=== PATIENT | female | born 1955 | race Caucasian/White ===

== ENCOUNTER 2020-08-26 21:12 | Emergency (ER) | payer BC ==
[2020-08-26] MEDS ORDERED: Lactated Ringers 500 ML IV ONE (21:19)
[2020-08-26] MEDS ORDERED: Sodium Chloride 0.9% 10 ML Syringe FLUSH PRN (21:19)
--- NOTE | 2020-08-26 21:41 | EDM.PDOC ---
ED HPI GENERAL MEDICAL PROBLEM - General Chief Complaint: Respiratory Problem Stated Complaint: ct scan Time Seen by Provider: 08/26/20 21:16 Source of Information: Reports: Patient, Provider (Dr. Sanchez, RN Notes Reviewed History Limitations: Reports: No Limitations - History of Present Illness INITIAL COMMENTS - FREE TEXT/NARRATIVE: Patient is a 64-year-old female who presents to the ED via the direction of her primary care provider for a CT of her chest. Patient was diagnosed with COVID- 19 at beginning of July, and is still having some lingering chest discomfort. She states that it feels like her entire chest has a lot of pressure. She notes that she is felt this before when she has had pleurisy, and it feels very similar. She states that after the COVID-19, she is just feeling generalized fatigue, but not having any fevers or chills, no cough. She does states her rib cage hurts all the time. She is not taking any sort of medications for the discomfort. She was directed by her primary care provider to come here for an angio CT of her chest to rule out a PE as her d-dimer done today was 0.57 by our lab. - Related Data Allergies Allergy/AdvReac Type Severity Reaction Status Date / Time Iodinated Contrast Media Allergy Severe Anaphylactic Verified 08/26/20 21:25 Shock Home Meds: Home Meds Losartan [Cozaar] 50 mg PO DAILY 08/26/20 [History] hydroCHLOROthiazide [Hydrochlorothiazide] 12.5 mg PO DAILY 08/26/20 [History] Past Medical History HEENT History: Reports: Impaired Vision Cardiovascular History: Reports: Hypertension - Infectious Disease History Infectious Disease History: Reports: MRSA Other Infectious Disease History: MRSA history under left arm - Past Surgical History HEENT Surgical History: Reports: Oral Surgery Female Surgical History: Reports: Hysterectomy Musculoskeletal Surgical History: Reports: Other (See Below) Other Musculoskeletal Surgeries/Procedures:: bilat foot surgery. Social & Family History - Tobacco Use Smoking Status *Q: Never Smoker - Caffeine Use Caffeine Use: Reports: Coffee - Recreational Drug Use Recreational Drug Use: No ED ROS GENERAL - Review of Systems Review Of Systems: Comprehensive ROS is negative, except as noted in HPI. ED EXAM, GENERAL - Physical Exam Exam: See Below Exam Limited By: No Limitations General Appearance: Alert, WD/WN, No Apparent Distress Respiratory/Chest: No Respiratory Distress, Lungs Clear, Normal Breath Sounds, No Accessory Muscle Use, Other (generalized chest tenderness to bilateral chest) Cardiovascular: Normal Peripheral Pulses, Regular Rate, Rhythm, No Murmur Peripheral Pulses: 2+: Radial (L), Radial (R) Neurological: Alert, Oriented, Normal Cognition, No Motor/Sensory Deficits Psychiatric: Normal Affect, Normal Mood Skin Exam: Warm, Dry, Intact, Normal Color, No Rash Course - Vital Signs Last Recorded V/S: Last Vital Signs Temp 97.7 F 08/26/20 21:19 Pulse 96 08/26/20 21:19 Resp 18 08/26/20 21:19 BP 161/85 H 08/26/20 21:19 Pulse Ox 97 08/26/20 21:19 - Orders/Labs/Meds Orders: Active Orders 24 hr Category Date Time Status Peripheral IV Insertion Adult [OM.PC] Routine Oth 08/26/20 21:19 Ordered Labs: Laboratory Tests 08/26/20 08/26/20 Range/Units 21:25 21:25 Sodium 143 (136-145) mEq/L Potassium 3.8 (3.5-5.1) mEq/L Chloride 105 (98-107) mEq/L Carbon Dioxide 25 (21-32) mEq/L Anion Gap 16.8 H (5-15) BUN 16 (7-18) mg/dL Creatinine 1.5 H (0.55-1.02) mg/dL Est Cr Clr Drug Dosing 32.87 mL/min Estimated GFR (MDRD) 35 (>60) mL/min BUN/Creatinine Ratio 10.7 L (14-18) Glucose 113 (80-115) mg/dL Calcium 9.6 (8.5-10.1) mg/dL Total Bilirubin 0.5 (0.2-1.0) mg/dL AST 21 (15-37) U/L ALT 34 (14-59) U/L Alkaline Phosphatase 84 (46-116) U/L C-Reactive Protein 0.9 (<1.0) mg/dL Total Protein 7.7 (6.4-8.2) g/dl Albumin 4.0 (3.4-5.0) g/dl Globulin 3.7 gm/dL Albumin/Globulin Ratio 1.1 (1-2) Meds: Medications Discontinued Medications Generic Name Dose Route Start Last Admin Trade Name Freq PRN Reason Stop Dose Admin Lactated Ringer's 500 mls @ 999 mls/hr 08/26/20 21:19 08/26/20 21:35 Ringers, Lactated IV 08/26/20 21:49 999 mls/hr .BOLUS ONE Administration Sodium Chloride 10 ml 08/26/20 21:19 08/26/20 21:36 Saline Flush FLUSH 10 ml ASDIRECTED PRN Administration Keep Vein Open - Re-Assessments/Exams Free Text/Narrative Re-Assessment/Exam: 08/26/20 21:41 Patient presents to the ED per Dr. Noriega for a CTA. When she gets here, she tells that she has an iodinated contrast media allergy, so we cannot do a CTA at this time. She will get some IV fluids, and have a CMP and a CRP taken at this time. The patient did have a d-dimer done earlier today at 0.57. I do believe there is low likelihood of suspicion for a pulmonary embolus. I did call Dr. Noriega back and we decided to go ahead with a V/Q scan in the morning, as she has an anaphylactic type reaction to the iodinated contrast media and I just do not believe would be safe for her to continue with the CT Angio. Patient is not tachycardic, her heart rate is 72 bpm, and her O2 sats are 95 to 97% on room air. Again low likelihood of suspicion for PE at this time. I do believe however the patient is probably suffering from pleurisy or pleuritic chest discomfort. 08/26/20 22:14 CMP has come back as well as CRP. CRP is not elevated. CMP shows a low GFR 35, creatinine mildly elevated at 1.9. Anion gap is elevated at 16. I do believe she might have some slight dehydration causing some of these issues. Nonetheless she did get a 500 mils bolus of lactated Ringer's while in the ER. Patient be discharged home with general recommendations at this time. 08/27/20 14:26 The patient did have her ventilation/perfusion scan done and there was no abnormalities noted. I called the patient and made her aware of this along with her provider Dr. Noriega. Departure - Departure Time of Disposition: 22:15 Disposition: Home, Self-Care 01 Condition: Good Clinical Impression: Elevated d-dimer, Pleuritic chest pain - Discharge Information *PRESCRIPTION DRUG MONITORING PROGRAM REVIEWED*: No *COPY OF PRESCRIPTION DRUG MONITORING REPORT IN PATIENT JACKIE: No Instructions: Nonspecific Chest Pain, Adult, [id number] Referrals: Que Noriega MD [Primary Care Provider] - Forms: ED Department Discharge Additional Instructions: You were evaluated in the ER today for your elevated d-dimer. As you had an iodinated contrast media allergy, you unfortunately could not get a CT of your chest with contrast. We did however place an outpatient order for you for a ventilation/perfusion scan, that our radiology department will call to schedule you for in the morning. This will likely be early in the morning tomorrow after they have completed their stress tests. But again they will call you to have you come in for this test. If you do not hear from them by around 10:30 in the morning tomorrow, please call [phone] and ask for radiology, and they should be able to connect you with someone who knows about their scheduling. You will need to follow-up with Dr. Noriega for the results of this, I will also be back at work tomorrow, I will keep an eye out for the results, if there is anything worrisome I will try to call you sooner rather than later. It is likely that your chest discomfort is due to pleuritic inflammation or pleurisy, you may take 600 mg ibuprofen every 6 hours as needed for further pain relief. Do not exceed 3200 mg ibuprofen in a 24-hour time span. Please return to the ER at any time if your symptoms change or worsen. Sepsis Event Note (ED) - Evaluation Sepsis Screening Result: No Definite Risk - My Orders Last 24 Hours: My Active Orders 08/26/20 21:19 Peripheral IV Insertion Adult [OM.PC] Routine - Assessment/Plan Last 24 Hours: My Active Orders 08/26/20 21:19 Peripheral IV Insertion Adult [OM.PC] Routine
== END 2020-08-26 22:25 | disposition home or self-care (01) ==
LOC: JD.ED 21:12
DX: R07.81 Pleurodynia (principal); R79.1 Abnormal coagulation profile; I10 Essential (primary) hypertension; Z91.041 Radiographic dye allergy status; Z79.899 Other long term (current) drug therapy
CPT/HCPCS: 36415; 80053; 86140; 96360; 99284; J7120; 99283

== ENCOUNTER 2020-11-06 08:56 | Day surgery (SDC) | payer BC ==
--- NOTE | 2020-11-04 12:48 | PCM.SN.2 ---
<Rosa ElenaJulieth J - Last Filed: 11/06/20 09:11> - Free Text/Narrative Note: Right selective femoral nerve block at the adductor canal for post-procedure pain control under US guidance requested by Dr. Kemp. Time Out: Start: End: Chart reviewed. Consent signed. Questions answered. Appropriate monitors applied. Time out performed. Right mid-shaft femur identified with ultrasound, scanning medially of femur, the femoral artery in the adductor canal visualized, and the femoral nerve located laterally to the artery. The skin was prepped lateral to the ultrasound probe with chlorahexadine times two. The 21ga 4 insulated block needle was inserted under direct ultrasound guidance into the adductor canal. 25mL of 0.5% ropivacaine with 1:200,000 epinephrine was injected circumferentially around the nerve with intermittent negative aspiration noted. Patient tolerated the procedure well. Sterile technique noted along with sterile gloves, mask, and sterile probe cover. See picture on progress note and vital signs on nurses notes. Block completed in PACU. Jigar Ruiz CRNA <Seda Ruiz - Last Filed: 11/06/20 13:28> - Free Text/Narrative Note: Time Out: 1314 Start: 1315 Stop: 1319
[~2020-11-06 08:56] MED LIST: Acetaminophen 325 MG Tab PO SCH; EPINEPHrine 1 MG/ML SDV ONE; Lactated Ringers 1,000 ML IV SCH; Lidocaine 1%/Sod Bicarbonate in NS 8.4% 1 ML Syringe IDERM PRN; Pregabalin 25 MG Cap PO SCH; Ropivacaine 0.5% 5 MG/ML 30 ML SDV ONE; Sodium Chloride 0.9% 10 ML Syringe FLUSH PRN; oxyCODONE ER 10 MG TAB.ER PO SCH
[2020-11-06] MEDS ORDERED: Bupivacaine 0.25% 10 ML SDV ONE ×2 (09:18→09:35)
[2020-11-06] MEDS ORDERED: Triamcinolone Acetonide 40 MG/ML 1 ML SDV ONE (09:35)
[2020-11-06] MEDS ORDERED: Midazolam 1 MG/ML 2 ML SDV ONE (09:39)
[2020-11-06] MEDS ORDERED: Propofol 200 MG/20 ML SDV ONE (09:39)
[2020-11-06] MEDS ORDERED: fentaNYL 100 MCG/2 ML SDV ONE (09:39)
[2020-11-06] MEDS ORDERED: Ketamine 500 mg/10 ML MDV ONE (09:40)
[2020-11-06] MEDS ORDERED: Ketorolac 15 MG/ML SDV ONE (11:35)
[2020-11-06] MEDS ORDERED: Lidocaine 1% 4 ML ONE (11:35)
[2020-11-06] MEDS ORDERED: Dexamethasone 4 MG/ML 5 ML MDV ONE (11:35)
[2020-11-06] MEDS ORDERED: Ondansetron 4 MG/2 ML SDV ONE (11:35)
[2020-11-06] MEDS ORDERED: ceFAZolin 1 GM Vial ONE (11:36)
[2020-11-06] MEDS: Bupivacaine 0.25% 10 ML SDV ONE ×2 (12:11→12:22)
[2020-11-06] MEDS: Morphine 8 MG, EPINEPHrine 0.3 MG, Cefuroxime 750 MG, Ketorolac 30 MG, Sodium Chloride ... PRN ×10 (12:12→12:22)
[2020-11-06] MEDS: Vancomycin 1 GM SDV ONE ×2 (12:13→12:27)
--- NOTE | 2020-11-06 13:05 | PCM.POSTAN ---
POST ANESTHESIA ASSESSMENT - MENTAL STATUS Mental Status: Alert, Oriented - VITAL SIGNS Vital Signs: Last Vital Signs Temp 36.4 C 11/06/20 12:55 Pulse 63 11/06/20 12:55 Resp 17 11/06/20 13:00 BP 105/61 11/06/20 13:00 Pulse Ox 98 11/06/20 13:00 - RESPIRATORY Respiratory Status: Respiratory Rate WNL, Airway Patent, O2 Saturation Stable, Supplemental Oxygen - CARDIOVASCULAR CV Status: Pulse Rate WNL, Blood Pressure Stable - GASTROINTESTINAL GI Status: No Symptoms - PAIN Pain Score: 0 - POST OP HYDRATION Hydration Status: Adequate & Stable
--- NOTE | 2020-11-06 13:09 | PCM.PREANE ---
Preanesthetic Assessment - Procedure Proposed Procedure: right Total Knee Injection - Anesthesia/Transfusion/Family Hx Anesthesia History: Prior Anesthesia Without Reaction Family History of Anesthesia Reaction: No - Review of Systems General: No Symptoms Pulmonary: No Symptoms Cardiovascular: No Symptoms Gastrointestinal: Other (GERD) Neurological: Headache (Migraine headaches worse since covid infection in July. ) Other: Reports: None (Covid infection in july. Feeling much better now. ) - Physical Assessment NPO Status Date: 11/05/20 NPO Status Time: 23:30 Vital Signs: Last Vital Signs Temp 36.4 C 11/06/20 12:55 Pulse 63 11/06/20 12:55 Resp 17 11/06/20 13:00 BP 105/61 11/06/20 13:00 Pulse Ox 98 11/06/20 13:00 Height: 1.6 m Weight: 79.379 kg ASA Class: 2 Mental Status: Alert & Oriented x3 Airway Class: Mallampati = 2 Dentition: Reports: Normal Dentition Thyro-Mental Finger Breadths: 3 Mouth Opening Finger Breadths: 3 ROM/Head Extension: Full Lungs: Clear to Auscultation, Normal Respiratory Effort Cardiovascular: Regular Rate, Regular Rhythm - Lab Values: Laboratory Last Values MRSA (PCR) Negative 10/29/20 16:47 - Allergies Allergies/Adverse Reactions: Allergies Allergy/AdvReac Type Severity Reaction Status Date / Time Iodinated Contrast Media Allergy Severe Anaphylactic Verified 11/05/20 16:19 Shock - Anesthesia Plan Pre-Op Medication Ordered: Anxiolytic - Acknowledgements Anesthesia Type Planned: Spinal Pt an Appropriate Candidate for the Planned Anesthesia: Yes Alternatives and Risks of Anesthesia Discussed w Pt/Guardian: Yes Pt/Guardian Understands and Agrees with Anesthesia Plan: Yes PreAnesthesia Questionnaire HEENT History: Reports: Impaired Vision, Sinusitis, Other (See Below) Other HEENT History: oral surgery Cardiovascular History: Reports: Hypertension, Other (See Below) Other Cardiovascular History: edema Other Respiratory History: cough Genitourinary History: Reports: Other (See Below) Other Genitourinary History: stage III renal insufficiency 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) Other OB/BYN History: post menopausal Musculoskeletal History: Reports: Other (See Below) Other Musculoskeletal History: joint pain, wrist sprain, trigger finger, left hip pain, OA, bunions Neurological History: Reports: Headaches, Chronic Psychiatric History: Reports: Other (See Below) Other Psychiatric History: malaise, fatigue Endocrine/Metabolic History: Reports: Osteopenia Hematologic History: Reports: None Immunologic History: Reports: None Oncologic (Cancer) History: Reports: None Dermatologic History: Reports: Other (See Below) Other Dermatologic History: back contusion, skin disorder - Infectious Disease History Infectious Disease History: Reports: MRSA, Novel Coronavirus Other Infectious Disease History: MRSA history under left arm - Past Surgical History HEENT Surgical History: Reports: Oral Surgery Cardiovascular Surgical History: Reports: None Respiratory Surgical History: Reports: None GI Surgical History: Reports: Colonoscopy, EGD Female Surgical History: Reports: Hysterectomy Male Surgical History: Reports: None Endocrine Surgical History: Reports: None Neurological Surgical History: Reports: None Musculoskeletal Surgical History: Reports: Other (See Below) Other Musculoskeletal Surgeries/Procedures:: bilat foot surgery. Oncologic Surgical History: Reports: None Dermatological Surgical History: Reports: None - SUBSTANCE USE Tobacco Use Status *Q: Never Tobacco User Recreational Drug Use History: No - HOME MEDS Home Medications: Home Meds Losartan [Cozaar] 50 mg PO DAILY 08/26/20 [History] hydroCHLOROthiazide [Hydrochlorothiazide] 12.5 mg PO DAILY 08/26/20 [History] Cholecalciferol (Vitamin D3) [Vitamin D3] 4,000 unit PO DAILY 11/05/20 [History] Magnesium Gluconate 30 mg PO DAILY 11/05/20 [History] Multivitamin [Multi-Day Vitamins] 1 tab PO DAILY 11/05/20 [History] Nutridine 1 tab PO DAILY 11/05/20 [History] Omeprazole Magnesium [Prilosec Otc] 20 mg PO DAILY 11/05/20 [History] Aspirin [Aspirin EC] 325 mg PO BID #84 tab 11/06/20 [Rx] Cyclobenzaprine [Flexeril] 10 mg PO BID PRN #20 tab 11/06/20 [Rx] Ondansetron [Zofran] 4 mg PO Q6H PRN #20 tab 11/06/20 [Rx] oxyCODONE 5 - 10 mg PO Q4H PRN #40 tab 11/06/20 [Rx] - CURRENT (IN HOUSE) MEDS Current Meds: Current Medications Acetaminophen (Tylenol) 975 mg PO ONETIME LILIANA Stop: 11/06/20 14:00 Last Admin: 11/06/20 09:53 Dose: 975 mg Documented by: Morphine Sulfate 8 mg/Epinephrine HCl 0.3 mg/Cefuroxime Sodium 750 mg/Ketorolac Tromethamine 30 mg/Sodium Chloride 7.9 ml 0 mg .XX ASDIRECTED PRN PRN Reason: Pain Stop: 11/06/20 15:00 Last Admin: 11/06/20 12:22 Dose: 788.3 mg Documented by: Lactated Ringer's (Ringers, Lactated) 1,000 mls @ 125 mls/hr IV ASDIRECTED LILIANA Stop: 11/06/20 23:00 Last Admin: 11/06/20 09:10 Dose: 125 mls/hr Documented by: Lidocaine/Sodium Bicarbonate (Buffered Lidocaine 1% In Ns 8.4%) 0.25 ml IDERM ONETIME PRN PRN Reason: Prior to IV Start Stop: 11/06/20 18:00 Last Admin: 11/06/20 09:10 Dose: 0.25 ml Documented by: Oxycodone HCl (Oxycontin) 10 mg PO ONETIME LILIANA Stop: 11/06/20 14:00 Last Admin: 11/06/20 09:54 Dose: 10 mg Documented by: Pregabalin (Lyrica) 50 mg PO ONETIME LILIANA Stop: 11/06/20 14:00 Last Admin: 11/06/20 09:54 Dose: 50 mg Documented by: Sodium Chloride (Saline Flush) 10 ml FLUSH ASDIRECTED PRN PRN Reason: Keep Vein Open Stop: 11/06/20 18:00 Discontinued Medications Bupivacaine HCl (Sensorcaine-Mpf 0.25%) Confirm Administered Dose 30 ml .ROUTE .STK-MED ONE Stop: 11/06/20 09:19 Bupivacaine HCl (Sensorcaine-Mpf 0.25%) Confirm Administered Dose 30 ml .ROUTE .STK-MED ONE Stop: 11/06/20 09:20 Last Admin: 11/06/20 12:22 Dose: 30 ml Documented by: Bupivacaine HCl (Sensorcaine-Mpf 0.25%) Confirm Administered Dose 10 ml .ROUTE .STK-MED ONE Stop: 11/06/20 09:36 Cefazolin Sodium (Ancef) Confirm Administered Dose 2 gm .ROUTE .STK-MED ONE Stop: 11/06/20 11:37 Dexamethasone (Dexamethasone) Confirm Administered Dose 20 mg .ROUTE .STK-MED ONE Stop: 11/06/20 11:36 Epinephrine HCl (Adrenalin) Confirm Administered Dose 1 mg .ROUTE .STK-MED ONE Stop: 11/06/20 06:24 Fentanyl (Sublimaze) Confirm Administered Dose 100 mcg .ROUTE .STK-MED ONE Stop: 11/06/20 09:40 Lidocaine HCl (Xylocaine-Mpf 1%) Confirm Administered Dose 4 mls @ as directed .ROUTE .STK-MED ONE Stop: 11/06/20 11:36 Ketamine HCl (Ketalar) Confirm Administered Dose 500 mg .ROUTE .STK-MED ONE Stop: 11/06/20 09:41 Ketorolac Tromethamine (Toradol) Confirm Administered Dose 15 mg .ROUTE .STK-MED ONE Stop: 11/06/20 11:36 Midazolam HCl (Versed 1 Mg/Ml) Confirm Administered Dose 2 mg .ROUTE .STK-MED ONE Stop: 11/06/20 09:40 Ondansetron HCl (Zofran) Confirm Administered Dose 4 mg .ROUTE .STK-MED ONE Stop: 11/06/20 11:36 Propofol (Diprivan 20 Ml) Confirm Administered Dose 600 mg .ROUTE .STK-MED ONE Stop: 11/06/20 09:40 Ropivacaine (Naropin 0.5%) Confirm Administered Dose 30 ml .ROUTE .STK-MED ONE Stop: 11/06/20 06:24 Tranexamic Acid (Cyklokapron) Confirm Administered Dose 1,000 mg .ROUTE .STK-MED ONE Stop: 11/06/20 09:19 Last Admin: 11/06/20 12:27 Dose: 1,000 mg Documented by: Triamcinolone Acetonide (Kenalog-40) Confirm Administered Dose 80 mg .ROUTE .STK-MED ONE Stop: 11/06/20 09:36 Vancomycin HCl (Vancomycin) Confirm Administered Dose 1 gm .ROUTE .STK-MED ONE Stop: 11/06/20 09:19 Last Admin: 11/06/20 12:27 Dose: 1 gm Documented by:
[2020-11-06] MEDS ORDERED: HYDROmorphone 0.5 MG/0.5 ML Syringe IVPUSH PRN (13:46)
[2020-11-06] MEDS ORDERED: Ondansetron 4 MG/2 ML SDV IVPUSH PRN (13:46)
[2020-11-06] MEDS ORDERED: fentaNYL 100 MCG/2 ML SDV IVPUSH PRN (13:46)
[2020-11-06] MEDS ORDERED: oxyCODONE 5 MG Tab PO PRN (14:05)
--- NOTE | 2020-11-06 14:10 | PCM48HPAN ---
Post Anesthesia Note - EVALUATION WITHIN 48HRS OF ANESTHETIC Vital Signs in Normal Range: Yes Patient Participated in Evaluation: Yes Respiratory Function Stable: Yes Airway Patent: Yes Cardiovascular Function Stable: Yes Hydration Status Stable: Yes Pain Control Satisfactory: Yes Nausea and Vomiting Control Satisfactory: Yes Mental Status Recovered: Yes Vital Signs: Last Vital Signs Temp 36.4 C 11/06/20 12:55 Pulse 64 11/06/20 14:00 Resp 16 11/06/20 14:00 BP 127/58 L 11/06/20 14:00 Pulse Ox 92 L 11/06/20 14:00
--- NOTE | 2020-11-06 14:14 | CR ---
Right knee: AP and lateral views of the right knee were obtained. Comparison: Previous right knee MRI dated 08/09/18. Findings: Osseous: Knee prosthesis is seen. Components are aligned. Underlying bony structures are intact. Soft tissues: Soft tissue air is noted. Impression: 1. Satisfactory postoperative radiographic appearance of recently placed right knee prosthesis. Diagnostic code #2
--- NOTE | 2020-11-18 07:41 | PCM.OPNOTE ---
- General Post-Op/Procedure Note Date of Surgery/Procedure: 11/06/20 Operative Procedure(s): right total knee arthroplasty with left knee corticosteroid injection Pre Op Diagnosis: bilateral knee osteoarthrosis Post-Op Diagnosis: Same Anesthesia Technique: Local, MAC, Spinal Primary Surgeon: Zaid Kemp Anesthesia Provider: Seda Ruiz Fiscal Assistant: Bell Olmedo Fiscal Assistant: Kristina Gaytan EBL in mLs: 10 Complications: None Condition: Good Free Text/Narrative:: 4 press fit femur 4 press fit tibia 10mm 29x9 mm cemented
--- NOTE | 2020-11-19 02:06 | OR ---
DATE OF OPERATION: 11/06/2020 SURGEON: Zaid Kemp MD OPERATION PERFORMED: Right total knee arthroplasty with left knee corticosteroid injection. PREOPERATIVE DIAGNOSIS: Bilateral knee osteoarthrosis. POSTOPERATIVE DIAGNOSIS: Bilateral knee osteoarthrosis. ANESTHESIA: Local MAC with spinal. ANESTHESIA PROVIDER: Tatianna Angeles. ASSISTANTS: Bell Olmedo PA-C and Kristina Gaytan LPN. ESTIMATED BLOOD LOSS: 10 mL. COMPLICATIONS: None. CONDITION: Stable. IMPLANTS: 1. Felicia size 4 press-fit CR femur. 2. [place] size 4 press-fit tibial baseplate. 3. Felicia size 4, 10 mm CS polyethylene insert. 4. Felicia size 29 x 9 mm cemented asymmetric patella. DESCRIPTION OF PROCEDURE: The patient was identified in the preop holding area. Proper site was marked and identified by the surgeon. The patient was taken back to the operating theater. After adequate anesthesia, the patient's right lower extremity had a nonsterile tourniquet applied and it was sterilely prepped and draped in the usual sterile fashion. OR time-out was performed. The patient received 2 g IV Ancef. At this time, the right lower extremity was exsanguinated. Tourniquet was insufflated to 300 mmHg. Standard medial parapatellar incision was made. Medial parapatellar arthrotomy was created. Deep fibers of the MCL were raised and anterior fat pad was resected. At this time, attention was turned to the patella. Patella measured a 20, it was resected to a 13 for a 29 x 9 mm patella. Drill holes were then drilled and found to be in adequate position. The drill was then drilled in the distal femur and the intramedullary distal femoral cutting guide was then placed. 8 mm was resected off the distal femur and was found to be an adequate resection. Sizing guide was placed. It was found to be a size 4 press-fit CR femur that was shown on the implant record at the beginning of this dictation. The drill holes were drilled for the epicondylar axis using [place]itesides line and epicondyles as reference. At this time, the 4-in-1 cutting block was placed. An anterior posterior and anterior and posterior chamfer cuts were then completed. Attention was turned to the tibia. The posterior medial lateral retractors were placed. The extramedullary tibial guide was placed. It was placed in the old footprint of the ACL. It was aligned with the center of the ankle and 0 degrees of slope, 9 mm was then resected off the unaffected side. There was found to be an acceptable reduction. At this time, posterior osteophytes were removed along with medial and lateral meniscus. A trial implant was placed with a correct sized tibia that was mentioned at the beginning of the dictation. A [place] size 4, 10 mm CS polyethylene insert was then placed. The patient's knee was brought through range of motion. The patella was tracking centrally and was stable to varus and valgus stress. Alignment was found to be roughly at 0 degrees. The tibia was stamped and drilled in proper rotation. The universal tibial base plate was impacted in place. Next, the [place] size 4 press-fit CR femur impacted into place and the Felicia size 4, 10 mm CS polyethylene insert was placed. The patient's knee was brought into full extension. The patella was then press-fit in place at this time. Tourniquet was deflated. One liter dilute Betadine solution was irrigated through the knee along with 3 L of pulse lavage irrigation with Ancef. Periarticular injection was then completed. The patient's knee was brought through a range of motion. Once the cement had time to set up and it was found to be stable to varus valgus stress, the patella was tracking centrally with full range of motion. At this time, a #2 barbed suture was used for closure of the medial parapatellar arthrotomy. Topical tranexamic acid was placed. 2-0 Vicryl was used subcutaneously, Prineo was used for the skin. The patient tolerated the procedure well and was sent to the PACU in stable condition. After this was completed under sterile technique, 2 mL of 40 mg Kenalog and 4 mL of 0.25% Marcaine were injected to the left knee. COREY /[id number]
== END 2020-11-06 16:10 | disposition home or self-care (01) ==
LOC: JD.SDS 08:56
PROVIDERS: ATTEND Orthopaedic Surgery
DX: M17.0 Bilateral primary osteoarthritis of knee (principal); G89.18 Other acute postprocedural pain; I12.9 Hypertensive chronic kidney disease with stage 1 through stage 4 chronic kidney disease, or unspecified chronic kidney disease; N18.30 Chronic kidney disease, stage 3 unspecified; Z79.899 Other long term (current) drug therapy; Z88.8 Allergy status to other drugs, medicaments and biological substances; Z98.890 Other specified postprocedural states; Z79.82 Long term (current) use of aspirin
CPT/HCPCS: 20610; 27447; 73560; 87641; 97110; 97116; 97161; A9270; C1776; J0171; J0690; J0697; J1100; J1885; J2001; J2250; J2270; J2405; J2704; J2795; J3010; J3301; J3370; J3490; J7120; 01402; 64450

== ENCOUNTER 2022-03-19 11:25 | Day surgery (SDC) | payer BC ==
[~2022-03-19 11:25] MED LIST changes: -Acetaminophen 325 MG Tab PO SCH; +Cefuroxime 10 MG/ML SYRINGE EYERT SCH; -EPINEPHrine 1 MG/ML SDV ONE; -Lactated Ringers 1,000 ML IV SCH; +Lidocaine 1% PF 2 ML SDV INJECT SCH; -Lidocaine 1%/Sod Bicarbonate in NS 8.4% 1 ML Syringe IDERM PRN; +Pilocarpine 4% Ophth Soln 15 ML Bot EYERT SCH; -Pregabalin 25 MG Cap PO SCH; -Ropivacaine 0.5% 5 MG/ML 30 ML SDV ONE; -Sodium Chloride 0.9% 10 ML Syringe FLUSH PRN; -oxyCODONE ER 10 MG TAB.ER PO SCH
[2022-03-19] MEDS: Polymyxin B/Trimethoprim 10 ML Bottle EYERT SCH ×3 (12:00→14:44)
[2022-03-19] MEDS: Brimonidine 0.2% Ophth Soln 5 ML Bottle EYERT SCH ×3 (12:06→14:44)
[2022-03-19] MEDS: Phenylephrine 2.5% Ophth Soln 2 ML Bot EYERT SCH ×5 (12:11→13:29)
[2022-03-19] MEDS: Tropicamide 1% Ophth Soln 15 ML Bottle EYERT SCH ×4 (12:16→13:00)
[2022-03-19] MEDS: Tetracaine HCl/PF 0.5% 4 ML Bottle EYEBOTH SCH ×2 (13:15→13:32)
== END 2022-03-19 13:52 | disposition home or self-care (01) ==
LOC: JD.SDS 11:25
PROVIDERS: ATTEND Ophthalmology
DX: H25.813 Combined forms of age-related cataract, bilateral (principal); I10 Essential (primary) hypertension; Z98.890 Other specified postprocedural states
CPT/HCPCS: 66984; J0697; C1780

== ENCOUNTER 2022-04-16 09:26 | Day surgery (SDC) | payer BC ==
[~2022-04-16 09:26] MED LIST changes: -Cefuroxime 10 MG/ML SYRINGE EYERT SCH; -Lidocaine 1% PF 2 ML SDV INJECT SCH; +Pilocarpine 4% Ophth Soln 15 ML Bot EYELF SCH; -Pilocarpine 4% Ophth Soln 15 ML Bot EYERT SCH
[2022-04-16] MEDS: Polymyxin B/Trimethoprim 10 ML Bottle EYELF SCH ×3 (09:36→11:47)
[2022-04-16] MEDS: Brimonidine 0.2% Ophth Soln 5 ML Bottle EYELF SCH ×4 (09:40→13:20)
[2022-04-16] MEDS: Phenylephrine 2.5% Ophth Soln 2 ML Bot EYELF SCH ×6 (09:46→13:19)
[2022-04-16] MEDS: Tropicamide 1% Ophth Soln 15 ML Bottle EYELF SCH ×4 (09:50→11:00)
[2022-04-16] MEDS: Tetracaine HCl/PF 0.5% 4 ML Bottle EYEBOTH SCH ×5 (11:15→13:19)
[2022-04-16] MEDS: Lidocaine 1% PF 2 ML SDV INJECT SCH ×2 (11:35→13:19)
[2022-04-16] MEDS ORDERED: Ondansetron 4 MG/2 ML SDV IVPUSH PRN (11:38)
[2022-04-16] MEDS: Cefuroxime 10 MG/ML SYRINGE EYELF SCH ×2 (11:46→13:20)
== END 2022-04-16 12:02 | disposition home or self-care (01) ==
LOC: JD.SDS 09:26
PROVIDERS: ATTEND Ophthalmology
DX: H25.812 Combined forms of age-related cataract, left eye (principal); H35.373 Puckering of macula, bilateral; H35.343 Macular cyst, hole, or pseudohole, bilateral; H16.103 Unspecified superficial keratitis, bilateral; H16.223 Keratoconjunctivitis sicca, not specified as Sjogren's, bilateral; H02.834 Dermatochalasis of left upper eyelid; H02.831 Dermatochalasis of right upper eyelid; Z96.1 Presence of intraocular lens; K21.9 Gastro-esophageal reflux disease without esophagitis; H54.7 Unspecified visual loss; I12.9 Hypertensive chronic kidney disease with stage 1 through stage 4 chronic kidney disease, or unspecified chronic kidney disease; N18.30 Chronic kidney disease, stage 3 unspecified; Z91.041 Radiographic dye allergy status; Z98.890 Other specified postprocedural states; Z79.899 Other long term (current) drug therapy
CPT/HCPCS: 66984; C1780; J0697

== ENCOUNTER 2022-06-10 06:27 | Day surgery (SDC) | payer BC ==
[2022-06-10] MEDS: Lactated Ringers 1,000 ML IV SCH ×2 (06:20→12:30)
[~2022-06-10 06:27] MED LIST changes: +Lactated Ringers 1,000 ML ONE; +Lidocaine 1%/Sod Bicarbonate in NS 8.4% 1 ML Syringe IDERM PRN; +Midazolam 1 MG/ML 2 ML SDV ONE; +Morphine 8 MG, EPINEPHrine 0.3 MG, Cefuroxime 750 MG, Ketorolac 30 MG, Sodium Chloride ... PRN; +Ondansetron 4 MG/2 ML SDV ONE; -Pilocarpine 4% Ophth Soln 15 ML Bot EYELF SCH; +Propofol 200 MG/20 ML SDV ONE; +Sodium Chloride 0.9% 10 ML Syringe FLUSH PRN; +Sodium Chloride 0.9% 10 ML Syringe FLUSH SCH; +Vancomycin 1 GM SDV ONE; +ceFAZolin 2 GM Vial ONE; +fentaNYL 100 MCG/2 ML SDV ONE
[2022-06-10] MEDS ORDERED: EPINEPHrine 1 MG/ML SDV ONE (06:33)
[2022-06-10] MEDS ORDERED: Ropivacaine 0.5% 5 MG/ML 30 ML SDV ONE (06:34)
[2022-06-10] MEDS ORDERED: Ondansetron 4 MG/2 ML SDV IVPUSH PRN (07:19)
[2022-06-10] MEDS ORDERED: fentaNYL 100 MCG/2 ML SDV IVPUSH PRN (07:19)
[2022-06-10] MEDS ORDERED: Phenylephrine 1% 10 MG/ML SDV ONE (07:26)
[2022-06-10] MEDS ORDERED: Acetaminophen/HYDROcodone 325-5 MG Tab PO ONE (12:30)
== END 2022-06-10 13:01 | disposition home or self-care (01) ==
LOC: JD.SDS 06:27
PROVIDERS: ATTEND Orthopaedic Surgery
DX: M17.12 Unilateral primary osteoarthritis, left knee (principal); I10 Essential (primary) hypertension; M85.80 Other specified disorders of bone density and structure, unspecified site; Z79.899 Other long term (current) drug therapy; Z91.041 Radiographic dye allergy status; Z98.890 Other specified postprocedural states; Z88.5 Allergy status to narcotic agent
CPT/HCPCS: 0055T; 27447; 73560; 97110; 97116; 97161; A9270; C1713; C1776; J0171; J0690; J0697; J1885; J2250; J2270; J2370; J2405; J2704; J2795; J3010; J3370; J7030; J7120; 01402; 64450; 76942